=== PATIENT | female | born 1955 | race Caucasian/White ===

== ENCOUNTER 2020-12-28 17:24 | Emergency (ER) | payer OTHER ==
[~2020-12-28] VITALS: Ht 167.6 cm; Wt 54.5 kg
[~2020-12-28 17:24] MED LIST: COL100C PO; FLO0.1T PO; LORA1TAB PO; OXYC-481 PO; ROSU5TAB4 PO; SERT-153 PO
[2020-12-28 17:28] VITALS: BP 110/79
[2020-12-28] MEDS ORDERED: triamcinolone acetonide 40mg/ml inj IM ONE (18:05)
[2020-12-28] MEDS ORDERED: CEPH250T PO (18:05)
== END 2020-12-28 18:41 | disposition home or self-care (01) ==
LOC: ER 17:25
DX: L23.7 Allergic contact dermatitis due to plants, except food (principal); L03.113 Cellulitis of right upper limb; J44.9 Chronic obstructive pulmonary disease, unspecified; F41.9 Anxiety disorder, unspecified; F32.9 Major depressive disorder, single episode, unspecified; F17.200 Nicotine dependence, unspecified, uncomplicated; Z90.89 Acquired absence of other organs; Z90.710 Acquired absence of both cervix and uterus; Z98.890 Other specified postprocedural states; Z88.1 Allergy status to other antibiotic agents; Z79.2 Long term (current) use of antibiotics; Z79.899 Other long term (current) drug therapy
CPT/HCPCS: 96372; 99283; J3301

== ENCOUNTER 2021-10-19 11:50 | Emergency (ER) | payer OTHER ==
[~2021-10-19] VITALS: Ht 167.6 cm; Wt 55.0 kg
[2021-10-19 12:11] VITALS: BP 137/74
[2021-10-19] MEDS ORDERED: TETanus/Pertussis (Acell)/Diphther VAC/PF (Tdap-Adult) 0.5ml syringe IMVAC ONE (14:05)
[2021-10-19] MEDS ORDERED: ondansetron 4mg rapidly disintigrating tab PO ONE (14:05)
[2021-10-19] MEDS ORDERED: amox tr/potassium clavulanate 875/125mg TAB PO ONE (14:05)
[2021-10-19] MEDS ORDERED: bacitracin 15gm ointment TP ONE (14:05)
[2021-10-19] MEDS ORDERED: AMOX1TAB87 PO (14:09)
== END 2021-10-19 15:09 | disposition home or self-care (01) ==
LOC: ER 11:50
DX: S61.234A Puncture wound without foreign body of right ring finger without damage to nail, initial encounter (principal); J44.9 Chronic obstructive pulmonary disease, unspecified; F41.9 Anxiety disorder, unspecified; F32.9 Major depressive disorder, single episode, unspecified; Z90.710 Acquired absence of both cervix and uterus; Z98.890 Other specified postprocedural states; Z90.89 Acquired absence of other organs; Z88.1 Allergy status to other antibiotic agents; Z79.2 Long term (current) use of antibiotics; Z20.3 Contact with and (suspected) exposure to rabies; Z79.899 Other long term (current) drug therapy; W54.0XXA Bitten by dog, initial encounter; Y93.89 Activity, other specified; Y92.89 Other specified places as the place of occurrence of the external cause; Y99.8 Other external cause status
CPT/HCPCS: 90471; 90715; 99284

== ENCOUNTER 2022-11-11 20:36 | Inpatient (IN) | payer OTHER, MEDICARE ==
[~2022-11-11] VITALS: Ht 167.6 cm; Wt 55.0 kg
[2022-11-11 20:51] LABS: BASOPHILS # (AUTO) 0.1 X10'3 (0-0.2); BASOPHILS % (AUTO) 1.3 % (0-1); EOSINOPHILS # (AUTO) 0.3 X10'3 (0-0.9); HEMATOCRIT 40.6 % (35.0-45.0); HEMOGLOBIN 13.3 g/dl (12.0-16.0); LYMPHOCYTES # (AUTO) 1.3 X10'3 (1.1-4.8); LYMPHOCYTES % (AUTO) 22.6 % (21-51); MEAN CORPUSCULAR HEMOGLOBIN 31.5 PG (27.0-31.0); MEAN CORPUSCULAR HGB CONC 32.8 g/dL (33.0-36.5); MONOCYTES # (AUTO) 0.2 X10'3 (0-0.9); MONOCYTES % (AUTO) 3.4 % (2-12); NEUTROPHILS % (AUTO) 67.7 % (42-75); PLATELET COUNT 219 X10'3 (140-440); RED BLOOD COUNT 4.23 X10'6 (4.20-5.60); RED CELL DISTRIBUTION WIDTH 13.6 % (11.5-14.5); WHITE BLOOD COUNT 5.9 X10'3 (4.5-11.0)
[2022-11-11 21:03] LABS: ALANINE AMINOTRANSFERASE 50 U/L (12-78); ALBUMIN/GLOBULIN RATIO 1.3 (1.1-1.5); ALKALINE PHOSPHATASE 85 IU/L (46-116); ANION GAP 8 (8-16); ASPARTATE AMINO TRANSFERASE 28 U/L (10-37); BILIRUBIN,TOTAL 0.4 MG/DL (0.1-1.0); BLOOD UREA NITROGEN 10 MG/DL (7-18); BUN/CREATININE RATIO 13.3 (6.6-38.0); CALCIUM 9.3 MG/DL (8.5-10.1); CHLORIDE 102 MMOL/L (99-107); CREATININE 0.75 MG/DL (0.40-0.90); GLUCOSE 100 MG/DL (70-104); POTASSIUM 3.7 MMOL/L (3.5-5.1); SODIUM 139 MMOL/L (135-145); TOTAL CARBON DIOXIDE 28.6 MMOL/L (24-32); TOTAL PROTEIN 7.2 G/DL (6.4-8.2); eGFR 78 ML/MIN
[2022-11-11 21:10] LABS: MAGNESIUM 2.2 MG/DL (1.5-2.4)
[2022-11-11 23:36] LABS: D-DIMER 0.57 MG/L FEU (0-0.50)
[2022-11-11] MEDS ORDERED: iohexol 350MG/ML 100ml bottle IV ONE (23:43)
[2022-11-12] MEDS ORDERED: enoxaparin 100mg/ml syringe SUBCUT ONE (00:35)
[2022-11-12] MEDS ORDERED: Levothyroxine (00:38)
[2022-11-12] MEDS ORDERED: ONDA8TAB13 PO (00:38)
[2022-11-12] MEDS ORDERED: SYN0.088T PO (00:38)
[2022-11-12] MEDS ORDERED: potassium Cl 40MEQ/1/2NS 520ml 520 ML IV PRN (01:00)
[2022-11-12] MEDS ORDERED: acetaminophen 325mg tablet PO PRN (01:00)
[2022-11-12] MEDS ORDERED: albuterol 2.5 MG/3 ML nebule NEB PRN (01:00)
[2022-11-12] MEDS ORDERED: ondansetron/PF 4mg/2ml inj IV PRN ×2 (01:00→16:55)
[2022-11-12] MEDS ORDERED: heparin 10,000 units/1 ML INJ IV PRN (01:00)
[2022-11-12] MEDS ORDERED: mag hydrox/Alum hydrox/simeth 30ml oral suspension PO PRN (01:00)
[2022-11-12] MEDS ORDERED: magnesium Cl slow-release 64mg tablet PO PRN (01:00)
[2022-11-12] MEDS ORDERED: potassium Cl 20 mEq SR tablet PO PRN ×2 (01:00)
[2022-11-12] MEDS ORDERED: magnesium hydroxide 30ml (MOM) UD suspension PO PRN (01:00)
[2022-11-12] MEDS ORDERED: heparin 10,000 units/1 ML INJ IV ONE (01:00)
[2022-11-12] MEDS ORDERED: clopidogrel 300mg tablet PO ONE (01:00)
[2022-11-12] MEDS ORDERED: magnesium 4gm in 100ml NS 100 ML IV PRN (01:00)
[2022-11-12] MEDS ORDERED: heparin 25,000 UNIT/250ml bag 250 ML IV PRN (01:00)
[2022-11-12] MEDS ORDERED: clopidogrel 75mg tablet PO ONE (01:20)
[2022-11-12 01:35] LABS: BASOPHILS # (AUTO) 0.1 X10'3 (0-0.2); BASOPHILS % (AUTO) 1.3 % (0-1); EOSINOPHILS # (AUTO) 0.3 X10'3 (0-0.9); EOSINOPHILS % (AUTO) 4.7 % (0-6); HEMATOCRIT 37.5 % (35.0-45.0); HEMOGLOBIN 12.5 g/dl (12.0-16.0); LYMPHOCYTES # (AUTO) 0.9 X10'3 (1.1-4.8); LYMPHOCYTES % (AUTO) 15.5 % (21-51); MEAN CORPUSCULAR HEMOGLOBIN 32.1 PG (27.0-31.0); MEAN CORPUSCULAR HGB CONC 33.4 g/dL (33.0-36.5); MEAN CORPUSCULAR VOLUME 96.2 FL (78-98); MEAN PLATELET VOLUME 8.1 FL (7.4-10.4); MONOCYTES # (AUTO) 0.2 X10'3 (0-0.9); MONOCYTES % (AUTO) 3.5 % (2-12); NEUTROPHILS # (AUTO) 4.5 X10'3 (1.8-7.7); PLATELET COUNT 182 X10'3 (140-440); RED BLOOD COUNT 3.89 X10'6 (4.20-5.60); RED CELL DISTRIBUTION WIDTH 13.5 % (11.5-14.5); WHITE BLOOD COUNT 5.9 X10'3 (4.5-11.0)
[2022-11-12] MEDS ORDERED: LORazepam 1 MG tablet PO PRN (01:40)
[2022-11-12 01:43] LABS: APTT 28 SECONDS (22-32)
[2022-11-12 04:31] LABS: HEMOGLOBIN A1C 5.5 % (4.5-6.2)
[2022-11-12 04:39] LABS: CHOL/HDL RATIO 2.2 (0.00-4.99); CHOLESTEROL 175 MG/DL (0-200); HDL CHOLESTEROL 78 MG/DL (35-60); LDL CHOLESTEROL 95 MG/DL (50-100); TRIGLYCERIDES 31 MG/DL (20-135)
[2022-11-12] MEDS ORDERED: PERFLUTREN PROTEIN-A MICROSPHR (Optison) 0.22 MG/ML 3ML VIAL IV ONE (07:55)
[2022-11-12 08:40] VITALS: BP 127/71
--- NOTE | 2022-11-12 09:14 | NUR ---
Paged Dr Freire: [place] [id number]. Trop from 273, new: [phone]. Maryuri [id number]
[2022-11-12] MEDS: atorvastatin 20mg tablet PO SCH (10:30)
[2022-11-12] MEDS: sertraline 50mg tablet PO SCH (10:30)
[2022-11-12] MEDS: levoTHYROXINE 88mcg tablet PO SCH (10:31)
[2022-11-12] MEDS: metoprolol tartrate 12.5mg (1/2 tablet) PO SCH ×2 (10:31→21:39)
[2022-11-12] MEDS: docusate sod 100mg capsule PO SCH ×2 (10:31→20:00)
[2022-11-12 12:58] VITALS: BP 96/56
--- NOTE | 2022-11-12 13:34 | NUR ---
Paged Dr Freire: Trop now [phone] Addendum: 11/12/22 at 1354 by Maryuri Austin RN Miscommunication. Trop 567
[2022-11-12] MEDS ORDERED: diphenhydrAMINE 50 mg/ml inj ONE (14:26)
[2022-11-12] MEDS ORDERED: midazolam 1 mg/ML 2ml injection ONE (14:26)
[2022-11-12] MEDS ORDERED: LIDOcaine 1% 30ml preserv. free vial ONE (14:26)
[2022-11-12] MEDS ORDERED: iohexol 350MG/ML 100ml bottle IV ONE (14:26)
[2022-11-12] MEDS ORDERED: iohexol 350 MG/ML 50ML vial IV ONE (14:26)
[2022-11-12] MEDS ORDERED: fentaNYL/PF 50MCG/1 ML 2ML syringe ONE (14:26)
[2022-11-12] MEDS ORDERED: proCHLORperazine 10 MG/2 ml inj IV PRN (16:55)
[2022-11-12] MEDS ORDERED: nitroGLYCERIN 0.4mg SUBLingual tab SL PRN (16:55)
[2022-11-12] MEDS ORDERED: HYDROcodone/acetaminophen 10/325mg tab PO PRN (16:55)
[2022-11-12] MEDS ORDERED: HYDROcodone/acetaminophen 5mg/325mg tablet PO PRN (16:55)
[2022-11-12] MEDS ORDERED: OXAZEpam 15mg capsule PO PRN (16:55)
[2022-11-12] MEDS: normal saline 1000ml 1,000 ML IV SCH (17:08)
--- NOTE | 2022-11-12 17:08 | NUR ---
NS did not scan
[2022-11-12 18:00] VITALS: BP 104/67
--- NOTE | 2022-11-12 18:00 | NUR ---
Patient in room PCU 3018. I have received report from Maryuri BENDER and had the opportunity to ask questions and assume patient care.
--- NOTE | 2022-11-12 20:44 | NUR ---
PAGED DR. HUNG FOR [place] [facility]. [facility]- TROPS 380. CALLED AND INFORMED THAT DR. KRAFT IS AWARE AND NEED NO INTERVENTION NOW
[2022-11-12 22:00] VITALS: BP 99/58
[2022-11-13] MEDS: normal saline 1000ml 1,000 ML IV SCH (00:03)
[2022-11-13 02:00] VITALS: BP 102/61
[2022-11-13 06:38] LABS: EOSINOPHILS # (AUTO) 0.2 X10'3 (0-0.9); HEMOGLOBIN 12.6 g/dl (12.0-16.0); MONOCYTES # (AUTO) 0.3 X10'3 (0-0.9)
[2022-11-13 06:40] LABS: BASOPHILS % (AUTO) 1.2 % (0-1); HEMATOCRIT 38.4 % (35.0-45.0); LYMPHOCYTES # (AUTO) 0.8 X10'3 (1.1-4.8); MEAN CORPUSCULAR HEMOGLOBIN 31.5 PG (27.0-31.0); MEAN CORPUSCULAR HGB CONC 32.8 g/dL (33.0-36.5); MEAN CORPUSCULAR VOLUME 96.2 FL (78-98); MEAN PLATELET VOLUME 8.3 FL (7.4-10.4); MONOCYTES % (AUTO) 7.8 % (2-12); NEUTROPHILS # (AUTO) 2.4 X10'3 (1.8-7.7); PLATELET COUNT 193 X10'3 (140-440); RED CELL DISTRIBUTION WIDTH 13.6 % (11.5-14.5); WHITE BLOOD COUNT 3.8 X10'3 (4.5-11.0)
--- NOTE | 2022-11-13 06:53 | NUR ---
Patient in room PCU 3018. I have received report from Veronica BENDER and had the opportunity to ask questions and assume patient care. Pt awake. Denies pain. Expresses discomfort with PIV to Right AC. Patient wants it discontinued due to discomfort. PIV site has some redness. Pt has accessable PIV to RFA as well. Pt denies nausea. Addendum: 11/13/22 at 0654 by Aj Mcnally LVN Amended: Links added.
--- NOTE | 2022-11-13 06:55 | NUR ---
Problems reprioritized. Patient report given, questions answered & plan of care reviewed with Aj MAGALLON.
[2022-11-13 07:00] VITALS: BP 102/61
[2022-11-13 07:10] LABS: ALANINE AMINOTRANSFERASE 34 U/L (12-78); ALBUMIN 3.3 G/DL (3.4-5.0); ALBUMIN/GLOBULIN RATIO 1.2 (1.1-1.5); ALKALINE PHOSPHATASE 79 IU/L (46-116); ANION GAP 10 (8-16); ASPARTATE AMINO TRANSFERASE 26 U/L (10-37); BILIRUBIN,TOTAL 0.6 MG/DL (0.1-1.0); BLOOD UREA NITROGEN 8 MG/DL (7-18); BUN/CREATININE RATIO 11.4 (6.6-38.0); CALCIUM 8.1 MG/DL (8.5-10.1); CHLORIDE 107 MMOL/L (99-107); GLUCOSE 89 MG/DL (70-104); MAGNESIUM 2.1 MG/DL (1.5-2.4); POTASSIUM 3.8 MMOL/L (3.5-5.1); SODIUM 137 MMOL/L (135-145); TOTAL CARBON DIOXIDE 20.2 MMOL/L (24-32); TOTAL PROTEIN 6.1 G/DL (6.4-8.2); eGFR 84 ML/MIN
[2022-11-13] MEDS: docusate sod 100mg capsule PO SCH (08:00)
[2022-11-13 08:08] VITALS: BP_SYST 116
[2022-11-13] MEDS: metoprolol tartrate 12.5mg (1/2 tablet) PO SCH (08:08)
[2022-11-13] MEDS: levoTHYROXINE 88mcg tablet PO SCH (08:08)
[2022-11-13] MEDS: atorvastatin 20mg tablet PO SCH (08:08)
[2022-11-13] MEDS: sertraline 50mg tablet PO SCH (08:08)
[2022-11-13] MEDS ORDERED: ALBU2.5V7 NEB (11:11)
[2022-11-13] MEDS ORDERED: CLOP75TA34 PO (11:11)
[2022-11-13] MEDS ORDERED: IPRA3AMP31 IH (11:11)
[2022-11-13] MEDS ORDERED: ASPI81TA53 PO (11:11)
[2022-11-13] MEDS ORDERED: LOP12.5T PO (11:11)
[2022-11-13] MEDS ORDERED: ATOR20TA66 PO (11:11)
--- NOTE | 2022-11-13 14:49 | NUR ---
All verbal and written discharge order provided. All questions answered. Pt PIV discontinued. Pt has R groin access site from cath procedure. Dressing changed. Provided training on wound care. She verbalized understanding. all belongings taken with patient including cellphone. Pt breathing even and unlabored on room air. tele box discontinued. Pt ambulated to lobby via wheelchair. Pt leaving with spouse in personal vehicle. Addendum: 11/13/22 at 1454 by Aj Mcnally LVN Amended: Links added.
[2022-11-14] MEDS ORDERED: aspirin 81mg tab.chew PO SCH (08:30)
== END 2022-11-13 14:49 | disposition home or self-care (01) | DRG 282 ==
LOC: ER 20:37 → ED HOLD 11-12 01:05 → PCU 3S 11-12 08:23
PROVIDERS: ADMIT Family Medicine; ATTEND Family Medicine
PROC: B32T1ZZ Computerized Tomography (CT Scan) of Left Pulmonary Artery using Low Osmolar Contrast (ICD-10-PCS; 2022-11-11)
PROC: B3201ZZ Computerized Tomography (CT Scan) of Thoracic Aorta using Low Osmolar Contrast (ICD-10-PCS; 2022-11-11)
PROC: B32S1ZZ Computerized Tomography (CT Scan) of Right Pulmonary Artery using Low Osmolar Contrast (ICD-10-PCS; 2022-11-11)
PROC: 4A023N7 Measurement of Cardiac Sampling and Pressure, Left Heart, Percutaneous Approach (ICD-10-PCS; principal; 2022-11-12)
PROC: B2111ZZ Fluoroscopy of Multiple Coronary Arteries using Low Osmolar Contrast (ICD-10-PCS; 2022-11-12)
PROC: B2151ZZ Fluoroscopy of Left Heart using Low Osmolar Contrast (ICD-10-PCS; 2022-11-12)
PROC: B41F1ZZ Fluoroscopy of Right Lower Extremity Arteries using Low Osmolar Contrast (ICD-10-PCS; 2022-11-12)
DX: I21.4 Non-ST elevation (NSTEMI) myocardial infarction (principal); E03.9 Hypothyroidism, unspecified; E78.5 Hyperlipidemia, unspecified; F17.210 Nicotine dependence, cigarettes, uncomplicated; F32.A Depression, unspecified; F41.9 Anxiety disorder, unspecified; G62.0 Drug-induced polyneuropathy; R09.02 Hypoxemia; C50.919 Malignant neoplasm of unspecified site of unspecified female breast; I25.10 Atherosclerotic heart disease of native coronary artery without angina pectoris; J43.9 Emphysema, unspecified; T45.1X5A Adverse effect of antineoplastic and immunosuppressive drugs, initial encounter; Z79.02 Long term (current) use of antithrombotics/antiplatelets; Z79.82 Long term (current) use of aspirin; Z82.49 Family history of ischemic heart disease and other diseases of the circulatory system; Z86.16 Personal history of COVID-19; Z88.1 Allergy status to other antibiotic agents; Z90.49 Acquired absence of other specified parts of digestive tract; Z90.710 Acquired absence of both cervix and uterus; Z88.5 Allergy status to narcotic agent; Z79.899 Other long term (current) drug therapy; Z71.6 Tobacco abuse counseling; Y92.89 Other specified places as the place of occurrence of the external cause
CPT/HCPCS: 36415; 71045; 71275; 80053; 80061; 83036; 83735; 83880; 84484; 85025; 85379; 85610; 85730; 87081; 93005; 93306; 93458; 99152; 99285; A6258; A6402; C1760; C1769; G0378; J1200; J1644; J2250; J3010; J3490; J7030; Q9967

== ENCOUNTER 2023-10-10 19:39 | Inpatient (IN) | payer OTHER, MEDICARE ==
[~2023-10-10] VITALS: Ht 167.6 cm; Wt 70.5 kg
[~2023-10-10 19:39] MED LIST changes: +ALBU2.5V7 NEB; +ASPI81TA53 PO; +ATOR20TA66 PO; +CLOP75TA34 PO; -COL100C PO; -FLO0.1T PO; +IPRA3AMP31 IH; +LOP12.5T PO; +ONDA8TAB13 PO; -OXYC-481 PO; -ROSU5TAB4 PO; +SYN0.088T PO
[2023-10-10] MEDS ORDERED: albuterol 2.5 MG/3 ML nebule NEB ONE (19:50)
[2023-10-10 20:09] LABS: BASOPHILS % (AUTO) 0.2 % (0-1); EOSINOPHILS % (AUTO) 0.1 % (0-6); HEMATOCRIT 43.1 % (35.0-45.0); HEMOGLOBIN 14.4 g/dl (12.0-16.0); LYMPHOCYTES # (AUTO) 0.2 X10'3 (1.1-4.8); LYMPHOCYTES % (AUTO) 2.4 % (21-51); MEAN CORPUSCULAR HEMOGLOBIN 30.3 PG (27.0-31.0); MEAN CORPUSCULAR HGB CONC 33.4 g/dL (33.0-36.5); MEAN CORPUSCULAR VOLUME 90.6 FL (78-98); MEAN PLATELET VOLUME 7.7 FL (7.4-10.4); MONOCYTES # (AUTO) 0.4 X10'3 (0-0.9); MONOCYTES % (AUTO) 5.8 % (2-12); NEUTROPHILS # (AUTO) 6.9 X10'3 (1.8-7.7); NEUTROPHILS % (AUTO) 91.5 % (42-75); PLATELET COUNT 182 X10'3 (140-440); RED BLOOD COUNT 4.76 X10'6 (4.20-5.60); RED CELL DISTRIBUTION WIDTH 13.9 % (11.5-14.5); WHITE BLOOD COUNT 7.6 X10'3 (4.5-11.0)
[2023-10-10 20:33] LABS: ALANINE AMINOTRANSFERASE 20 U/L (12-78); ALBUMIN 3.8 G/DL (3.4-5.0); ALKALINE PHOSPHATASE 96 IU/L (46-116); ANION GAP 13 (8-16); ASPARTATE AMINO TRANSFERASE 21 U/L (10-37); BILIRUBIN,TOTAL 0.7 MG/DL (0.1-1.0); BLOOD UREA NITROGEN 7 MG/DL (7-18); BUN/CREATININE RATIO 9.3 (10.0-20.0); CHLORIDE 100 MMOL/L (99-107); CREATININE 0.75 MG/DL (0.40-0.90); GLUCOSE 138 MG/DL (70-104); POTASSIUM 3.8 MMOL/L (3.5-5.1); SODIUM 136 MMOL/L (135-145); TOTAL CARBON DIOXIDE 23.5 MMOL/L (24-32); TOTAL PROTEIN 7.6 G/DL (6.4-8.2); eCRCL 70 ML/MIN; eGFR 78 ML/MIN
[2023-10-10 20:36] VITALS: PULSE 86; RESP 20; O2SAT 96
[2023-10-10 20:40] LABS: PRO BRAIN NATRIURETIC PEPTIDE 648 PG/ML (0-125)
[2023-10-10 20:43] VITALS: PULSE 84; RESP 18
[2023-10-10] MEDS ORDERED: CefTRIAXone 250MG inj IM ONE (21:30)
[2023-10-10] MEDS ORDERED: azithromycin/NS 500mg/250ml 250 ML IV SCH (21:34)
[2023-10-10] MEDS ORDERED: CefTRIAXone 2gm/D5W 50ml BAG 50 ML IV ONE (21:35)
[2023-10-10] MEDS ORDERED: LEVO75TA7 PO (22:39)
[2023-10-10] MEDS ORDERED: LORA-268 PO (22:39)
[2023-10-10] MEDS ORDERED: BUDE10.22 INH (22:39)
[2023-10-10] MEDS ORDERED: ALBU2.5V10 NEB (22:41)
[2023-10-10] MEDS ORDERED: mag hydrox/Alum hydrox/simeth 30ml oral suspension PO PRN (23:55)
[2023-10-10] MEDS ORDERED: ondansetron 4mg rapidly disintigrating tab PO PRN (23:55)
[2023-10-10] MEDS ORDERED: HYDROcodone/acetaminophen 5mg/325mg tablet PO PRN (23:55)
[2023-10-10] MEDS ORDERED: magnesium hydroxide 30ml (MOM) UD suspension PO PRN (23:55)
[2023-10-10] MEDS ORDERED: diphenhydrAMINE 50 mg/ml inj IV PRN (23:55)
[2023-10-10] MEDS ORDERED: ipratropium/albuterol 3ml nebule NEB PRN (23:55)
[2023-10-10] MEDS ORDERED: acetaminophen 325mg tablet PO PRN ×2 (23:55)
[2023-10-10] MEDS ORDERED: morphine 2 MG/ML inj. syringe IV PRN (23:55)
[2023-10-10] MEDS ORDERED: diphenhydrAMINE 25mg capsule PO PRN (23:55)
[2023-10-10] MEDS ORDERED: bisacodyl 10mg suppository rectal RC PRN (23:55)
[2023-10-10] MEDS ORDERED: ondansetron/PF 4mg/2ml inj IV PRN (23:55)
[2023-10-11] VITALS (13 sets, daily range): BP systolic 108–134; BP diastolic 55–83; PULSE 67–98; RESP 16–24; TEMP 97.9–99.2; O2SAT 92–99
[2023-10-11] MEDS ORDERED: albuterol 2.5 MG/3 ML nebule NEB PRN (00:05)
[2023-10-11] MEDS ORDERED: LORazepam 0.5 MG tablet PO PRN (00:05)
[2023-10-11] MEDS: normal saline 1000ml 1,000 ML IV SCH (00:14)
[2023-10-11 01:11] LABS: URINE HCG NEGATIVE (NEG)
[2023-10-11 01:14] LABS: BILIRUBIN,URINE NEGATIVE (Neg); CLARITY,URINE SLIGHTLY CLOUDY (Clear); COLOR,URINE YELLOW (Yellow); GLUCOSE, URINE NEGATIVE (Neg); KETONES,URINE NEGATIVE (Neg); LEUKOCYTE ESTERASE ,URINE NEGATIVE (Neg); NITRITES, URINE NEGATIVE (Neg); OCCULT BLOOD,URINE TRACE-INTACT (Neg); PH,URINE 5.5 (4.8-8.0); PROTEIN,URINE TRACE mg/dl (Neg); UROBILINOGEN,URINE 0.2 E.U/dL (0.2-1.0)
[2023-10-11 01:19] LABS: UA COLLECTION TYPE CLN CATCH MIDSTREAM
[2023-10-11 01:25] LABS: MUCUS STRANDS MANY /LPF (Neg)
[2023-10-11 01:26] LABS: BACTERIA,URINE FEW /HPF (Neg); HYALINE CASTS 0-3 /LPF (NEGATIVE); RBC,URINE 0-2 /HPF (0-2); SQUAMOUS EPITHELIAL CELL,UR FEW /LPF (FEW); WBC,URINE 0-4 /HPF (0-4)
[2023-10-11 01:30] LABS: URINE AMPHETAMINE SCREEN NEGATIVE (Neg); URINE BARBITUATE SCREEN NEGATIVE (Neg); URINE BENZODIAZEPINES SCREEN NEGATIVE (Neg); URINE CANNABINOID SCREEN POSITIVE (Neg); URINE COCAINE SCREEN NEGATIVE (Neg); URINE METHADONE SCREEN NEGATIVE (Neg); URINE OPIATE SCREEN NEGATIVE (Neg); URINE PHENCYCLIDINE SCREEN NEGATIVE (Neg)
[2023-10-11 03:00] LABS: BASOPHILS % (AUTO) 0.5 % (0-1); EOSINOPHILS % (AUTO) 0 % (0-6); HEMOGLOBIN 13.8 g/dl (12.0-16.0); LYMPHOCYTES # (AUTO) 0.2 X10'3 (1.1-4.8); LYMPHOCYTES % (AUTO) 3.3 % (21-51); MEAN CORPUSCULAR HEMOGLOBIN 30.3 PG (27.0-31.0); MEAN CORPUSCULAR HGB CONC 33.7 g/dL (33.0-36.5); MEAN PLATELET VOLUME 7.7 FL (7.4-10.4); MONOCYTES # (AUTO) 0.4 X10'3 (0-0.9); MONOCYTES % (AUTO) 6.7 % (2-12); NEUTROPHILS # (AUTO) 5.5 X10'3 (1.8-7.7); NEUTROPHILS % (AUTO) 89.5 % (42-75); PLATELET COUNT 172 X10'3 (140-440); RED BLOOD COUNT 4.56 X10'6 (4.20-5.60); RED CELL DISTRIBUTION WIDTH 13.9 % (11.5-14.5); WHITE BLOOD COUNT 6.1 X10'3 (4.5-11.0)
[2023-10-11] MEDS: HYDROcodone/acetaminophen 10/325mg tab PO PRN ×4 (03:10→20:31)
[2023-10-11 03:23] LABS: APTT 29 SECONDS (22-32); D-DIMER 0.33 MG/L FEU (0-0.50); INR 1.1 INR; PROTHROMBIN TIME 11.8 SECONDS (9.0-12.0)
[2023-10-11 03:26] LABS: ALANINE AMINOTRANSFERASE 16 U/L (12-78); ALBUMIN 3.4 G/DL (3.4-5.0); ALBUMIN/GLOBULIN RATIO 0.8 (1.1-1.5); ALKALINE PHOSPHATASE 82 IU/L (46-116); ANION GAP 11 (8-16); ASPARTATE AMINO TRANSFERASE 33 U/L (10-37); BILIRUBIN,TOTAL 0.5 MG/DL (0.1-1.0); BLOOD UREA NITROGEN 7 MG/DL (7-18); BUN/CREATININE RATIO 11.1 (10.0-20.0); CALCIUM 8.8 MG/DL (8.5-10.1); CHLORIDE 101 MMOL/L (99-107); CREATININE 0.63 MG/DL (0.40-0.90); GLUCOSE 115 MG/DL (70-104); POTASSIUM 3.6 MMOL/L (3.5-5.1); SODIUM 136 MMOL/L (135-145); TOTAL CARBON DIOXIDE 24.5 MMOL/L (24-32); TOTAL PROTEIN 7.8 G/DL (6.4-8.2); eCRCL 83 ML/MIN; eGFR > 90 ML/MIN
[2023-10-11 03:32] LABS: PHOSPHORUS 3.2 MG/DL (2.3-4.5); PRO BRAIN NATRIURETIC PEPTIDE 1194 PG/ML (0-125)
[2023-10-11] MEDS: levoTHYROXINE 75mcg tablet PO SCH (08:00)
[2023-10-11] MEDS: nitroGLYCERIN 0.2mg/hour patch TD SCH (08:00)
[2023-10-11] MEDS: atorvastatin 20mg tablet PO SCH (08:00)
[2023-10-11] MEDS ORDERED: PERFLUTREN PROTEIN-A MICROSPHR (Optison) 0.22 MG/ML 3ML VIAL IV ONE (08:10)
[2023-10-11] MEDS: aspirin 81mg tab.chew PO SCH (09:26)
[2023-10-11] MEDS: docusate sod 100mg capsule PO SCH ×2 (09:27→20:27)
[2023-10-11] MEDS: methylPREDNISolone sod succ 125mg/2ml vial IV SCH ×2 (09:27→20:32)
[2023-10-11] MEDS: pantoprazole 40mg Tablet.DR PO SCH (09:27)
[2023-10-11] MEDS: sertraline 50mg tablet PO SCH (09:28)
[2023-10-11] MEDS: heparin, porcine 5000 units/ml vial SQ SCH ×2 (09:28→20:27)
[2023-10-11] MEDS ORDERED: ipratropium/albuterol 3ml nebule NEB PRN (12:00)
[2023-10-11] MEDS: ipratropium/albuterol 3ml nebule NEB SCH ×3 (14:38→23:33)
[2023-10-11] MEDS: azithromycin/NS 500mg/250ml 250 ML IV SCH (20:32)
[2023-10-11] MEDS: CefTRIAXone/D5W-Rocephin 1gm 50 ML IV SCH (22:10)
[2023-10-11] MEDS: temazepam 15mg capsule PO PRN (23:23)
[2023-10-12] VITALS (17 sets, daily range): BP systolic 113–144; BP diastolic 58–84; PULSE 76–104; RESP 16–22; TEMP 98.3–99.7; O2SAT 95–98
[2023-10-12] MEDS: HYDROcodone/acetaminophen 10/325mg tab PO PRN ×2 (03:23→19:40)
[2023-10-12] MEDS: ipratropium/albuterol 3ml nebule NEB SCH ×6 (03:26→23:43)
[2023-10-12 07:29] LABS: ALANINE AMINOTRANSFERASE 16 U/L (12-78); ALBUMIN 2.9 G/DL (3.4-5.0); ALBUMIN/GLOBULIN RATIO 0.8 (1.1-1.5); ALKALINE PHOSPHATASE 75 IU/L (46-116); ANION GAP 11 (8-16); ASPARTATE AMINO TRANSFERASE 24 U/L (10-37); BILIRUBIN,TOTAL 0.2 MG/DL (0.1-1.0); BLOOD UREA NITROGEN 8 MG/DL (7-18); BUN/CREATININE RATIO 12.9 (10.0-20.0); CALCIUM 8.4 MG/DL (8.5-10.1); CHLORIDE 101 MMOL/L (99-107); CREATININE 0.62 MG/DL (0.40-0.90); GLUCOSE 134 MG/DL (70-104); POTASSIUM 3.5 MMOL/L (3.5-5.1); SODIUM 136 MMOL/L (135-145); TOTAL PROTEIN 6.5 G/DL (6.4-8.2); eCRCL 85 ML/MIN; eGFR > 90 ML/MIN
[2023-10-12] MEDS: pantoprazole 40mg Tablet.DR PO SCH (07:30)
[2023-10-12 07:42] LABS: BASOPHILS % (AUTO) 0.2 % (0-1); EOSINOPHILS % (AUTO) 0 % (0-6); HEMATOCRIT 37.5 % (35.0-45.0); HEMOGLOBIN 12.5 g/dl (12.0-16.0); LYMPHOCYTES # (AUTO) 0.1 X10'3 (1.1-4.8); LYMPHOCYTES % (AUTO) 3.7 % (21-51); MEAN CORPUSCULAR HEMOGLOBIN 30.3 PG (27.0-31.0); MEAN CORPUSCULAR HGB CONC 33.4 g/dL (33.0-36.5); MEAN CORPUSCULAR VOLUME 90.7 FL (78-98); MEAN PLATELET VOLUME 8.3 FL (7.4-10.4); MONOCYTES # (AUTO) 0.2 X10'3 (0-0.9); MONOCYTES % (AUTO) 7.8 % (2-12); NEUTROPHILS # (AUTO) 2.4 X10'3 (1.8-7.7); NEUTROPHILS % (AUTO) 88.3 % (42-75); PLATELET COUNT 147 X10'3 (140-440); RED BLOOD COUNT 4.13 X10'6 (4.20-5.60); RED CELL DISTRIBUTION WIDTH 13.2 % (11.5-14.5); WHITE BLOOD COUNT 2.7 X10'3 (4.5-11.0)
[2023-10-12] MEDS: nitroGLYCERIN 0.2mg/hour patch TD SCH (08:00)
[2023-10-12 08:24] LABS: PLATELET ESTIMATE NORMAL; TOTAL CELLS COUNTED 100
[2023-10-12] MEDS: docusate sod 100mg capsule PO SCH ×2 (08:32→19:47)
[2023-10-12] MEDS: methylPREDNISolone sod succ 125mg/2ml vial IV SCH ×2 (08:32→20:13)
[2023-10-12] MEDS: heparin, porcine 5000 units/ml vial SQ SCH ×2 (08:32→19:48)
[2023-10-12] MEDS: sertraline 50mg tablet PO SCH (08:33)
[2023-10-12] MEDS: aspirin 81mg tab.chew PO SCH (08:33)
[2023-10-12] MEDS: levoTHYROXINE 75mcg tablet PO SCH (08:33)
[2023-10-12] MEDS: atorvastatin 20mg tablet PO SCH (08:46)
[2023-10-12 13:15] LABS: THYROID STIMULATING HORMONE 0.56 ulU/ml (0.34-4.50)
[2023-10-12] MEDS: azithromycin/NS 500mg/250ml 250 ML IV SCH (20:13)
[2023-10-12] MEDS: CefTRIAXone/D5W-Rocephin 1gm 50 ML IV SCH (21:37)
[2023-10-12] MEDS: temazepam 15mg capsule PO PRN (22:37)
[2023-10-12] MEDS: normal saline 1000ml 1,000 ML IV SCH (23:55)
[2023-10-13] VITALS (17 sets, daily range): BP systolic 111–129; BP diastolic 68–85; PULSE 82–130; RESP 16–20; TEMP 97.6–98.7; O2SAT 91–97
[2023-10-13] MEDS: ipratropium/albuterol 3ml nebule NEB SCH ×6 (03:00→23:55)
[2023-10-13 06:28] LABS: ANION GAP 9 (8-16); BLOOD UREA NITROGEN 12 MG/DL (7-18); BUN/CREATININE RATIO 19.4 (10.0-20.0); CHLORIDE 103 MMOL/L (99-107); CREATININE 0.62 MG/DL (0.40-0.90); GLUCOSE 126 MG/DL (70-104); POTASSIUM 3.4 MMOL/L (3.5-5.1); SODIUM 140 MMOL/L (135-145); TOTAL CARBON DIOXIDE 27.8 MMOL/L (24-32)
[2023-10-13 06:29] LABS: ALANINE AMINOTRANSFERASE 22 U/L (12-78); ALBUMIN 2.9 G/DL (3.4-5.0); ALBUMIN/GLOBULIN RATIO 0.9 (1.1-1.5); ALKALINE PHOSPHATASE 76 IU/L (46-116); ASPARTATE AMINO TRANSFERASE 28 U/L (10-37); BASOPHILS % (AUTO) 0.3 % (0-1); BILIRUBIN,TOTAL 0.2 MG/DL (0.1-1.0); CALCIUM 8.8 MG/DL (8.5-10.1); EOSINOPHILS % (AUTO) 0 % (0-6); HEMATOCRIT 37.4 % (35.0-45.0); HEMOGLOBIN 12.3 g/dl (12.0-16.0); LYMPHOCYTES # (AUTO) 0.2 X10'3 (1.1-4.8); MEAN CORPUSCULAR HEMOGLOBIN 29.7 PG (27.0-31.0); MONOCYTES # (AUTO) 0.4 X10'3 (0-0.9); MONOCYTES % (AUTO) 8.5 % (2-12); NEUTROPHILS # (AUTO) 4.2 X10'3 (1.8-7.7); NEUTROPHILS % (AUTO) 86.2 % (42-75); PLATELET COUNT 170 X10'3 (140-440); RED BLOOD COUNT 4.15 X10'6 (4.20-5.60); RED CELL DISTRIBUTION WIDTH 13.4 % (11.5-14.5); TOTAL PROTEIN 6.3 G/DL (6.4-8.2); WHITE BLOOD COUNT 4.9 X10'3 (4.5-11.0); eCRCL 85 ML/MIN; eGFR > 90 ML/MIN
[2023-10-13] MEDS ORDERED: potassium Cl 20 mEq SR tablet PO PRN (07:00)
[2023-10-13] MEDS ORDERED: magnesium 2GM in 50ml NS 50 ML IV PRN (07:00)
[2023-10-13] MEDS ORDERED: magnesium 4gm in 100ml NS 100 ML IV PRN (07:00)
[2023-10-13] MEDS ORDERED: magnesium Cl slow-release 64mg tablet PO PRN (07:00)
[2023-10-13] MEDS ORDERED: potassium Cl 40MEQ/1/2NS 520ml 520 ML IV PRN (07:00)
[2023-10-13] MEDS: nitroGLYCERIN 0.2mg/hour patch TD SCH (08:00)
[2023-10-13] MEDS: K and/or MAG REPLACEMENT MC SCH ×2 (08:00→20:00)
[2023-10-13] MEDS: atorvastatin 20mg tablet PO SCH (08:00)
[2023-10-13] MEDS: potassium Cl 20 mEq SR tablet PO PRN ×3 (08:00→17:45)
[2023-10-13] MEDS: pantoprazole 40mg Tablet.DR PO SCH (08:17)
[2023-10-13] MEDS: heparin, porcine 5000 units/ml vial SQ SCH ×2 (08:18→20:01)
[2023-10-13] MEDS: sertraline 50mg tablet PO SCH (08:18)
[2023-10-13] MEDS: levoTHYROXINE 75mcg tablet PO SCH (08:18)
[2023-10-13] MEDS: docusate sod 100mg capsule PO SCH (08:18)
[2023-10-13] MEDS: aspirin 81mg tab.chew PO SCH (08:19)
[2023-10-13] MEDS: HYDROcodone/acetaminophen 10/325mg tab PO PRN ×2 (08:20→20:01)
[2023-10-13 08:39] LABS: MAGNESIUM 1.8 MG/DL (1.5-2.4)
[2023-10-13] MEDS: azithromycin/NS 500mg/250ml 250 ML IV SCH (21:57)
[2023-10-13] MEDS: temazepam 15mg capsule PO PRN (22:01)
[2023-10-13] MEDS: CefTRIAXone/D5W-Rocephin 1gm 50 ML IV SCH (23:42)
[2023-10-14] VITALS (8 sets, daily range): BP systolic 100–115; BP diastolic 53–71; PULSE 86–118; RESP 16–20; TEMP 98–98.1; O2SAT 94–100
[2023-10-14] MEDS: ipratropium/albuterol 3ml nebule NEB SCH ×4 (03:03→17:51)
[2023-10-14 06:29] LABS: BASOPHILS % (AUTO) 0.2 % (0-1); EOSINOPHILS % (AUTO) 0.2 % (0-6); HEMATOCRIT 36.8 % (35.0-45.0); HEMOGLOBIN 12.5 g/dl (12.0-16.0); LYMPHOCYTES # (AUTO) 0.9 X10'3 (1.1-4.8); MEAN CORPUSCULAR HEMOGLOBIN 30.5 PG (27.0-31.0); MEAN CORPUSCULAR VOLUME 89.9 FL (78-98); MEAN PLATELET VOLUME 8.4 FL (7.4-10.4); MONOCYTES # (AUTO) 0.7 X10'3 (0-0.9); MONOCYTES % (AUTO) 13.1 % (2-12); NEUTROPHILS # (AUTO) 3.9 X10'3 (1.8-7.7); NEUTROPHILS % (AUTO) 70.5 % (42-75); PLATELET COUNT 159 X10'3 (140-440); RED BLOOD COUNT 4.09 X10'6 (4.20-5.60); RED CELL DISTRIBUTION WIDTH 13.6 % (11.5-14.5); WHITE BLOOD COUNT 5.5 X10'3 (4.5-11.0)
[2023-10-14 06:39] LABS: ALANINE AMINOTRANSFERASE 21 U/L (12-78); ALBUMIN/GLOBULIN RATIO 0.9 (1.1-1.5); ALKALINE PHOSPHATASE 74 IU/L (46-116); ANION GAP 5 (8-16); ASPARTATE AMINO TRANSFERASE 32 U/L (10-37); BILIRUBIN,TOTAL 0.2 MG/DL (0.1-1.0); BLOOD UREA NITROGEN 11 MG/DL (7-18); BUN/CREATININE RATIO 16.2 (10.0-20.0); CALCIUM 8.6 MG/DL (8.5-10.1); CHLORIDE 105 MMOL/L (99-107); CREATININE 0.68 MG/DL (0.40-0.90); GLUCOSE 90 MG/DL (70-104); MAGNESIUM 1.8 MG/DL (1.5-2.4); SODIUM 137 MMOL/L (135-145); TOTAL CARBON DIOXIDE 27.5 MMOL/L (24-32); TOTAL PROTEIN 6.2 G/DL (6.4-8.2); eCRCL 77 ML/MIN; eGFR 87 ML/MIN
[2023-10-14] MEDS ORDERED: predniSONE 20 mg tablet PO SCH (08:00)
[2023-10-14] MEDS: atorvastatin 20mg tablet PO SCH (08:00)
[2023-10-14] MEDS: nitroGLYCERIN 0.2mg/hour patch TD SCH (08:00)
[2023-10-14] MEDS: K and/or MAG REPLACEMENT MC SCH (08:00)
[2023-10-14] MEDS: pantoprazole 40mg Tablet.DR PO SCH (09:19)
[2023-10-14] MEDS: sertraline 50mg tablet PO SCH (09:21)
[2023-10-14] MEDS: levoTHYROXINE 75mcg tablet PO SCH (09:21)
[2023-10-14] MEDS: heparin, porcine 5000 units/ml vial SQ SCH (09:22)
[2023-10-14] MEDS: aspirin 81mg tab.chew PO SCH (09:22)
[2023-10-14] MEDS ORDERED: PANT40TA54 PO (13:29)
[2023-10-14] MEDS ORDERED: CEFD300C3 PO (13:29)
[2023-10-14] MEDS ORDERED: LACT1CAP65 PO (13:29)
[2023-10-14] MEDS ORDERED: PRED10TA23 PO (13:29)
[2023-10-14] MEDS ORDERED: azithromycin 250mg tablet PO SCH (21:00)
== END 2023-10-14 19:45 | disposition home or self-care (01) | DRG 193 ==
LOC: ER 19:40 → ED HOLD 10-11 → UNDOADMIN 10-11 00:12 → ED HOLD 10-11 00:12 → ORTHO 4S 10-11 07:45
PROVIDERS: ADMIT Family Medicine; ATTEND Family Medicine
DX: J18.9 Pneumonia, unspecified organism (principal); J96.01 Acute respiratory failure with hypoxia; J44.1 Chronic obstructive pulmonary disease with (acute) exacerbation; E87.20 Acidosis, unspecified; I42.9 Cardiomyopathy, unspecified; I50.32 Chronic diastolic (congestive) heart failure; I11.0 Hypertensive heart disease with heart failure; E03.9 Hypothyroidism, unspecified; E78.5 Hyperlipidemia, unspecified; F32.A Depression, unspecified; F41.9 Anxiety disorder, unspecified; I25.10 Atherosclerotic heart disease of native coronary artery without angina pectoris; Z82.49 Family history of ischemic heart disease and other diseases of the circulatory system; I27.20 Pulmonary hypertension, unspecified; Z87.891 Personal history of nicotine dependence; Z79.899 Other long term (current) drug therapy; Z88.1 Allergy status to other antibiotic agents; Z85.3 Personal history of malignant neoplasm of breast; Z90.49 Acquired absence of other specified parts of digestive tract; Z90.710 Acquired absence of both cervix and uterus; Z92.21 Personal history of antineoplastic chemotherapy
CPT/HCPCS: 36415; 71045; 80053; 80305; 81001; 81025; 83605; 83735; 83880; 84100; 84132; 84145; 84443; 84484; 85007; 85025; 85379; 85610; 85730; 87040; 93306; 94640; 94760; 96365; 96367; 97161; 97530; 99285; A4615; A4620; G0378; J0456; J0696; J1644; J2930; J7030; J7512

== ENCOUNTER 2024-10-16 09:42 | Emergency (ER) | payer MEDICARE, OTHER ==
[~2024-10-16] VITALS: Ht 168.9 cm; Wt 76.7 kg
[~2024-10-16 09:42] MED LIST changes: +ALBU2.5V10 NEB; -ALBU2.5V7 NEB; -ATOR20TA66 PO; +BUDE10.22 INH; +CEFD300C3 PO; -CLOP75TA34 PO; -IPRA3AMP31 IH; +LACT1CAP65 PO; +LEVO75TA7 PO; -LOP12.5T PO; +LORA-268 PO; -LORA1TAB PO; +ONDA-245 PO; -ONDA8TAB13 PO; +PANT40TA54 PO; -SYN0.088T PO
[2024-10-16 09:52] VITALS: BP 135/88; PULSE 93; RESP 16; TEMP 98.3; O2SAT 96
[2024-10-16] MEDS ORDERED: PRED20TA PO (12:04)
[2024-10-16] MEDS ORDERED: AMOX-117 PO (12:04)
== END 2024-10-16 12:12 | disposition home or self-care (01) ==
LOC: ER 09:42
DX: J32.9 Chronic sinusitis, unspecified (principal); J44.9 Chronic obstructive pulmonary disease, unspecified; F41.9 Anxiety disorder, unspecified; F32.A Depression, unspecified; Z85.3 Personal history of malignant neoplasm of breast; Z88.5 Allergy status to narcotic agent; Z88.1 Allergy status to other antibiotic agents; Z90.49 Acquired absence of other specified parts of digestive tract; Z90.710 Acquired absence of both cervix and uterus; Z90.89 Acquired absence of other organs; Z79.82 Long term (current) use of aspirin
CPT/HCPCS: 71045; 99283